=== PATIENT | female | born 1945 | race Caucasian/White ===

== ENCOUNTER → 2017-11-28 23:29 | Outpatient (CLI) | payer BC ==
[2015-12-24 14:18] VITALS: BMI 18.8
[~2017-11-28 23:29] MED LIST: ASPIRIN EC81 M1 PO; CELEXA10 MG PO; HYDROCODON-ACE1 EAC7 PO; MUCINEX DM ER1 EAC1 PO; MULTIPLE VITAMI1 TA1 PO; NORVASC5 MG PO; OMEPRAZOLE20 M1 PO; PEPCID20 MG PO; PROBIOTIC1 EAC1 PO
== END | disposition home or self-care (01) ==
LOC: D.MAMMO 11-15 14:15
DX: Z12.31 Encounter for screening mammogram for malignant neoplasm of breast (principal)

== ENCOUNTER → 2018-03-21 16:27 | Outpatient (CLI) | payer BC ==
[2015-12-24 14:18] VITALS: BMI 18.8
== END | disposition home or self-care (01) ==
LOC: D.MRI 16:27
DX: M54.5 Low back pain (principal)

== ENCOUNTER → 2018-05-02 08:01 | Outpatient (CLI) | payer BC ==
[2015-12-24 14:18] VITALS: BMI 18.8
[2018-05-02 09:22] LABS: ALBUMIN 3.9 g/dL (3.4-5.0); BILIRUBIN - DIRECT 0.16 mg/dL (0.00-0.30); BILIRUBIN - INDIRECT 0.45 mg/dL (0.00-1.00); BILIRUBIN - TOTAL 0.61 mg/dL (0.2-1.3); PROTEIN - SERUM 8.3 g/dL (6.4-8.2)
== END | disposition home or self-care (01) ==
LOC: D.MRI 08:00
PROVIDERS: Internal Medicine Gastroenterology
DX: R10.31 Right lower quadrant pain (principal); R93.89 Abnormal findings on diagnostic imaging of other specified body structures; R12 Heartburn

== ENCOUNTER → 2018-05-16 10:24 | Outpatient (CLI) | payer BC ==
[2015-12-24 14:18] VITALS: BMI 18.8
== END | disposition home or self-care (01) ==
LOC: D.RAD 10:24
PROVIDERS: ATTEND Internal Medicine Gastroenterology
DX: K57.90 Diverticulosis of intestine, part unspecified, without perforation or abscess without bleeding (principal); R10.9 Unspecified abdominal pain

== ENCOUNTER → 2020-08-13 09:10 | Outpatient (CLI) | payer BC ==
[2015-12-24 14:18] VITALS: BMI 18.8
--- NOTE | ~2020-08-13 | ST ---
PATIENT:PEPITO CELIS MEDICAL RECORD: [id number] SEX: F LOCATION:[facility] ORDER #: ADMISSION DATE: 08/13/20 AGE OF PATIENT: 75 REFERRING PHYSICIAN: INTERPRETING PHYSICIAN: DENIA RINCON MD DATE OF SERVICE: 08/13/2020 GATED: Gated is normal with normal wall motion, normal EF, calculated EF 72%. SPECT IMAGING: SPECT imaging was performed. 1. Short axis view: Short axis view shows a reversible defect extending from the mid inferior wall down to the inferior apex. This was confirmed in horizontal axis with a reversible defect from the mid inferior wall down to the inferior apex. 2. Vertical axis: Vertical axis shows good uptake along the lateral wall and septum. FINAL IMPRESSION: 1. Normal gated, normal wall motion, EF 72%. 2. Abnormal SPECT imaging with reversible defect seen along the mid inferior wall down to the inferior apex seen in 2 views. In this patient with ongoing anginal-type symptoms with known history of coronary artery disease, this scan is worrisome for progression of navajo disease. Consider diagnostic angiography if clinically indicated. TRANSINT:[id number] Voice Confirmation ID: [id number] DOCUMENT ID: [id number] DENIA RINCON MD CC: [id number] DICTATION DATE: 08/13/20 1703 PUMP SERVICER HELPER: 08/14/20 0604 DEP CLI 08/13/20 [id number] [place] [address]
== END | disposition home or self-care (01) ==
LOC: D.HCCARDIO 08-08 08:30
PROVIDERS: ATTEND Internal Medicine Interventional Cardiology
DX: R07.9 Chest pain, unspecified (principal)

== ENCOUNTER → 2020-08-14 09:28 | Outpatient (CLI) | payer BC ==
[2015-12-24 14:18] VITALS: BMI 18.8
== END | disposition home or self-care (01) ==
LOC: D.RT 09:00
PROVIDERS: ATTEND Family Medicine
DX: R06.00 Dyspnea, unspecified (principal)

== ENCOUNTER 2020-08-20 06:40 | Day surgery (SDC) | payer BC ==
[~2020-08-20] VITALS: Ht 160 cm; Wt 48.6 kg
--- NOTE | ~2020-08-20 | HEMODYNAMI ---
PATIENT:PEPITO CELIS MEDICAL RECORD: [id number] : 45 LOCATION:D.CAT ADMISSION DATE: 08/20/20 Generatedon:18:59 Patient name: PEPITO CELIS Patient #: [id number] SSN: [id number] : 1945 Date of study: 08/20/2020 Page: Of Hemodynamic Procedure Report Patient Data Patient Demographics Procedure consent was obtained First Name: PEPITO Gender: Female Last Name: LALITA : 1945 [facility] Initial: HERLINDA Age: 75 year(s) Patient #: [id number] Race: SSN: [id number] Additional ID: [id number] Contact details [address]: [address] [place] [address] State: [place] City: [place] Zip code: [address] Past Medical History Performed procedures and imaging results Date Procedure Procedure Results Comments 08/13/2020 Stress testing Positive->Intermediate with SPECT MPI risk Allergies Allergen Reaction Date Comments Reported Other allergy 08/20/2020 SULFA Admission Admission Data Admission Date: 08/20/2020 Admission Time: 6:40 Arrival Date: 08/20/2020 Arrival Time: 0:00 Admit Source: Other Insurance Payor: Private health insurance [facility] #: [id number] Height (in.): 63 BSA: 1.48 (m2) Height (cm.): 160.02 BMI: 18.99 (kg/m2) Weight (lbs.): 107.21 Weight (kg.): 48.63 Lab Results Lab Result Date: 08/20/2020 Lab Result Time: 0:00 Biochemistry Name Units Result Min Max BUN mg/dl 21 --(----)-* 7 18 Creatinine mg/dl 0.9 --(-*--)-- 0.6 1.3 eGFR ml/min 64.73494 *-(----)-- 90 120 NONAFRICAN CBC Name Units Result Min Max Hematocrit % 36.9 *-(----)-- 42 54 Hemoglobin g/dl 12.2 *-(----)-- 13.5 17.5 Procedure Procedure Types Cath Procedure Diagnostic Procedure [facility] w/Coronaries Sedation Charges Moderate Sedation 10-24 minutes Procedure Description Procedure Date Procedure Date: 08/20/2020 Procedure Start Time: 8:38 Procedure End Time: 8:57 Procedure Staff Name Function Tommie Trejo MD Performing Physician Rodriguez Wilson RN Nurse Ina Garcia RT Monitor Maria C Burton RT Scrub Procedure Data Cath Procedure Fluoroscopy Diagnostic fluoroscopy Total fluoroscopy Time: 1.9 time: 1.9 min min Diagnostic fluoroscopy Total fluoroscopy dose: 114 dose: 114 mGy mGy Contrast Material Contrast Material Type Amount (ml) Isovue 370 53 Entry Location Entry Primary Successful Side Size Upsize Upsize Entry Closure Sierra ccessful Closure Location (Fr) 1 (Fr) 2 (Fr) Remarks Device Remarks Radial Right 6 Fr Mechanical artery Short Compression Femoral Right 5 Fr Exoseal artery Estimated blood loss: 5 ml Diagnostic catheters Device Type Used For End Catheter Placement DIAGNOSTIC Anderson 110cm 5 Procedure Fr catheter ([id number]) MULTIPACK JL 4.0 5Fr Procedure catheter MULTIPACK 3DRC 5Fr Procedure catheter MULTIPACK Pigtail 5 Fr Procedure catheter Procedure Complications No complications Procedure Medications Medication Administration Route Dosage 0.9% NaCl I.V. 100 ml/hr Oxygen etCO2 Nasal cannula 2 l/min Heparin Flush Bag added to field 2 bags (1000units/500ml NS) Lidocaine 2% added to field 20 Zofran I.V. 4 mg Radial Cocktail added to field 1 syringe (Verapamil 2mg/Nitro 400mcg/Heparin 1500units) Versed I.V. 1 mg Fentanyl I.V. 50 mcg Versed I.V. 0.5 mg Hemodynamics Rest BSA: 1.48 (m2) HGB: 12.2 (g/dl) O2 Consumption: Estimated: 134.82 (ml/min) O2 Co nsumption indexed: Estimated:91.09 (ml/min/m) Heart Rate: 70 (bpm) Pressure Samples Time Site Value (mmHg) Purpose Heart Use Rate(bpm) 8:49 AO 101/56(81) Pullback 81 8:49 LV 104/-1,2 Pullback 81 Gradients Valve Time Site 1 Site 2 Mean SEP/DFP Peak To Heart Use (mmHg) (sec/min) Peak Rate (mmHg) (bpm) Aortic 8:49 LV AO 6 16 3 81 104/-1,2 101/56(81) Calculations Valve P-P Mean Valve Index Valve Source Name Gradient Area Flow (cm2) Aortic 3 6 3 6 Snapshots Pre Cath Intra NCS Post Cath Vital Signs Time Heart Resp SPO2 etCO2 NIBP (mmHg) Rhythm Pain Sedation Rate (ipm) (%) (mmHg) Status Level (bpm) 8:20:57 69 17 95 24 138/74(103) NSR 0 (11) 10(A) , No pain 8:25:13 69 17 97 24.7 119/67(92) NSR 0 (11) 10(A) , No pain 8:29:23 69 14 98 35.3 112/63(89) NSR 0 (11) 10(A) , No pain 8:33:31 72 15 98 34.5 108/60(77) NSR 0 (11) 10(A) , No pain 8:37:39 73 16 98 33.7 110/57(80) NSR 0 (11) 10(A) , No pain 8:41:44 76 6 97 27 122/68(98) NSR 0 (11) 10(A) , No pain 8:45:54 84 8 97 26.2 105/67(79) NSR 0 (11) 10(A) , No pain 8:49:58 83 11 97 31.5 119/66(86) NSR 0 (11) 10(A) , No pain 8:54:10 79 17 97 30 105/58(77) NSR 0 (11) 10(A) , No pain Medications Time Medication Route Dose Verified Delivered Reason Notes Ef fectiveness by by 8:19:12 0.9% NaCl I.V. 100 Tommie Frias used for ml/hr [facility] Nico Wilson exhibit technician 8:19:21 Oxygen etCO2 2 l/min Tommie Frias used for Nasal [facility] Nico Wilson exhibit technician cannula 8:19:28 Heparin Flush added 2 bags Tommie Reilly used for Bag to [facility] procedure (1000units/500ml field MD BROCK NS) 8:19:37 Lidocaine 2% added 20ml Tommie Reilly for local to vial [facility] anesthetic field MD BROCK 8:19:48 Zofran I.V. 4 mg Tommie Frias for nausea St Nico Wilson RN, MD 8:31:29 Radial Cocktail added 1 Tommie Reilly used for (Verapamil to syringe [facility] procedure 2mg/Nitro field MD BROCK 400mcg/Heparin 1500units) 8:35:43 Versed I.V. 1 [address] [facility] Nico Wilson RN sedation 8:35:51 Fentanyl I.V. 50 mcg Tommie Frias for St Nico Wilson RN sedation 8:41:59 Versed I.V. 0.5 mg Tom[address] for St Nico Wilson RN sedation Procedure Log Time Note 7:49:47 Informed consent obtained and on chart 7:50:19 Diagnostic Cath Status : Elective 7:50:31 Insurance Payor : Private health insurance 7:50:35 Arrival Date: 08/20/2020 12:00:00 AM 7:50:53 Admit Source: Other 7:50:56 Patient Height : 63 inches 7:51:00 Patient Weight : 107.21 lbs 7:51:38 Patient allergic to Other allergySULFA 7:51:43 ACC Patient presents with Stable Angina CCS Anginal Class 2--Slight limitation of ordinary activity. 7:51:47 Procedure Status Elective Heart Cath (OP). 7:51:49 Time tracking: Regular hours (M-F 7:00 - 5:00) 7:51:53 Plan of Care:Hemodynamics will remain stable., Cardiac rhythm will remain stable., Comfort level will be maintained., Respiratory function will remain adequate., Patient/ family verbilizes understanding of procedure., Procedure tolerated without complication., Recovers from procedure without complications.. 7:52:15 Stress Test: yes; abnormal INFERIOR 7:52:35 Alarms reviewed by R. N. 7:52:36 Sharps counted by scrub and verified by R.N. 8:01:41 Lab Result : BUN 21 mg/dl 8:01:41 Lab Result : eGFR NONAFRICAN 64.45145 ml/min 8:01:41 Lab Result : Hemoglobin 12.2 g/dl 8:01:41 Lab Result : Creatinine 0.9 mg/dl 8:01:41 Lab Result : Hematocrit 36.9 % 8:10:00 Rodriguez Wilson RN sent for patient. Start room use. 8:15:28 Patient received from Pre/Post Procedure Room to CCL 1 Alert and oriented. Tansferred to table in Supine position. 8:15:34 Warm blankets applied, and jack hugger turned on for patient comfort. 8:15:34 Correct patient and procedure confirmed by team. 8:15:35 ECG and BP/O2 sat monitors applied to patient. 8:15:36 Pre-procedure instructions explained to patient. 8:15:37 Pre-op teaching completed and patient verbalized understanding. 8:15:39 Family in waiting room. 8:15:40 Patient NPO since Midnight. 8:19:12 0.9% NaCl 100 ml/hr I.V. was administered by Rodriguez Wilson RN; used for procedure; Verbal order read back and verified. 8:19:21 Oxygen 2 l/min etCO2 Nasal cannula was administered by Rodriguez Wilson RN; used for procedure; Verbal order read back and verified. 8:19:28 Heparin Flush Bag (1000units/500ml NS) 2 bags added to field was administered by Tommie Trejo MD; used for procedure; Verbal order read back and verified. 8:19:37 Lidocaine 2% 20ml vial added to field was administered by Tommie Trejo MD; for local anesthetic; Verbal order read back and verified. 8:19:48 Zofran 4 mg I.V. was administered by Rodriguez Wilson RN; for nausea; Verbal order read back and verified. 8:19:51 Vital chart was started 8:20:22 Is the patient allergic to Iodine/contrast media? No. 8:20:28 Is patient on blood thinner?No 8:20:30 Patient diabetic? No. 8:20:33 ----Pre-sedation anethsthesia assessment.---- 8:20:39 Previous problem with sedation/anesthesia? No ? 8:20:40 Snore? Yes 8:20:42 Sleep apnea? No 8:20:43 Deviated septum? No 8:20:45 Opens mouth fully? Yes 8:20:47 Sticks out tongue? Yes 8:20:52 Airway obstruction? No ? 8:20:54 Dentures? No ? 8:21:00 Pre procedure: right dorsailis pedis pulse 2+ Normal; easily identifiable; not easily obliterated 8:21:03 Pre procedure: right radial pulse 2+ Normal; easily identifiable; not easily obliterated 8:21:07 Modified Trino's test Ulnar < 7 seconds 8:21:10 Patient pain scale 0/10 ?. 8:21:15 IV patent on arrival in left hand with 0.9% NaCl at [facility]. 8:21:18 Lab results completed and on chart. 8:23:46 Risk of Mortality: 0.3 8:23:52 Risk of blood transfusion: 1.8 8:23:56 Risk of WIN: 2.1 8:24:01 Right Radial & Right Groin area was prepped with chlora-prep and draped in sterile fashion 8:30:15 Baseline sample Acquired. 8:30:18 Full Disclosure recording started 8:30:21 Rhythm: sinus rhythm 8:30:40 H&P Date Dictated: 08/20/2020 New H&P dictated by physician.. 8:30:50 Use device set Radial Dx or PCI 8:30:51 ACIST Syringe (97010) opened to sterile field. 8:30:52 Medline Cath Pack ([id number]) opened to sterile field. 8:30:53 Bag Decanter (2002S) opened to sterile field. 8:30:53 ACIST Hand Control (84103) opened to sterile field. 8:30:54 ACIST Manifold (21034) opened to sterile field. 8:30:56 EMERALD Guide Wire (614-658) opened to sterile field. 8:30:58 SHEATH 6FR RAIN (5290919) opened to sterile field. 8:30:59 MBrace Wrist Support ([id number]) opened to sterile field. 8:31:29 Radial Cocktail (Verapamil 2mg/Nitro 400mcg/Heparin 1500units) 1 syringe added to field was administered by Tommie Trejo MD; used for procedure; Verbal order read back and verified. 8:35:03 --------ALL STOP TIME OUT------ 8:35:06 Final Timeout: patient, procedure, and site verified with staff and physician. All members of the team are in agreement. 8:35:08 Right Radial & Right Groin site verified by team. 8:35:10 Fire Safety Assessment: A--An alcohol-based skin anteseptic being used preoperatively., C--Open oxygen or nitrous oxide is being used., D--An ESU, laser, or fiber-optic light is being used. 8:35:12 Physical assessment completed. ASA score P 2 - A patient with mild systemic disease as per Tommie Trejo MD. 8:35:17 2) 60-89 Mildly reduced kidney function, and other findings (as for stage 1) point to kidney disease. 8:35:19 Maximum allowable contrast dose (3.7 X eGFR X 0.75)180 ml. 8:35:22 Sedation plan: IV Moderate Sedation Medication:Versed, Fentanyl 8:35:43 Versed 1 mg I.V. was administered by Rodriguez Wilson RN; for sedation; Verbal order read back and verified. 8:35:51 Fentanyl 50 mcg I.V. was administered by Rodriguez Wilson RN; for sedation; Verbal order read back and verified. 8:38:13 Procedure started. 8:38:21 Local anesthetic to right radial artery with Lidocaine 2% by Tommie Trejo MD.INITIAL ACCESS ONLY 8:40:43 A 6 Fr Short sheath was inserted into the Right Radial artery 8:41:27 A DIAGNOSTIC Anderson 110cm 5 Fr catheter ([id number]) was advanced over the wire and used for Procedure. 8:41:59 Versed 0.5 mg I.V. was administered by Rodriguez Wilson RN; for sedation; Verbal order read back and verified. 8:43:00 UNABLE TO GET GUIDE PAST RADIAL LOOP PROCEEDING TO GROIN. 8:43:07 Use device set Multipack Set 8:43:18 SHEATH 5FR [place] (ADG689) opened to sterile field. 8:43:19 DIAGNOSTIC Multipack 5Fr catheter set (BO0925) opened to sterile field. 8:43:26 Local anesthetic to right femoral artery with Lidocaine 2% by Tommie Trejo MD.ADDITIONAL ACCESS 8:44:13 A 5 Fr sheath was inserted into the Right Femoral artery 8:44:19 ZEPHYR REGULAR TR BAND (441544) opened to sterile field. 8:44:24 A MULTIPACK JL 4.0 5Fr catheter was advanced over the wire and used for Procedure. 8:45:16 LCA angiography performed. 8:45:18 Injector settings: Ml/sec: 3, Volume: 6, 8:46:23 Catheter removed. 8:46:28 A MULTIPACK 3DRC 5Fr catheter was advanced over the wire and used for Procedure. 8:47:47 Catheter exchanged over wire. 8:48:03 A MULTIPACK Pigtail 5 Fr catheter was advanced over the wire and used for Procedure. 8:48:43 LV gram done using CAPELLAN 8:49:43 LV hemodynamics recorded. 8:49:48 EF : 55 % 8:49:52 Catheter removed. 8:50:16 EXOSEAL 5Fr (EX500) opened to sterile field. 8:50:29 Sheath removed intact; hemostasis achieved with Mechanical Compression to the Right Radial artery. 8:50:38 Sheath removed intact; hemostasis achieved with Exoseal to the Right Femoral artery. 8:50:58 Fluoroscopy time 01.90 minutes. 8:51:02 Fluoroscopy dose: 114 mGy 8:51:02 Flurop Dose total: 114 8:51:08 Dose Area Product 5685 mGy/cm. 8:51:10 Procedure ended.(Physican Out) 8:51:35 Contrast amount:Isovue 370 53ml. 8:51:42 Maximum allowable dose exceeded? No. 8:51:42 Sharps counted by scrub and verified by R.N. 8:51:46 Cidra band inflated with 11cc of air. 8:51:51 Post-op/insertion site Right Femoral artery dressed using a 4 x 4 and Tegaderm. 8:51:56 Post right femoral artery:stable, soft, clean and dry 8:51:59 Post Procedure Pulses reassessed and unchanged 8:52:01 Post procedure: right dorsailis pedis pulse 1+ Palpable, but thready & weak; easily obliterated. 8:52:04 Post-procedure physical assessment completed. ASA score P 2 - A patient with mild systemic disease as per Tommie Trejo MD. 8:52:07 Post procedure rhythm: unchanged. 8:52:09 Estimated blood loss: 5 ml 8:52:23 Post procedure instruction explained to patient.Patient verbalizes understanding. 8:52:28 Patient needs reinforcement of post procedure teaching. 8:52:40 Procedure type changed to Cath procedure, Diagnostic procedure, LHC, [facility] w/Coronaries, Sedation Charges, Moderate Sedation 10-24 minutes 8:54:45 Procedure and supply charges have been captured, reviewed, submitted and are correct. 8:54:49 Procedure Complication : No complications 8:57:14 Vital chart was stopped 8:57:16 LHC Findings: mild to moderate CAD (<70%) 8:57:17 Operative report dictated upon procedure completion. 8:57:18 See physician's report for complete and final results. 8:57:21 Report given to Pre/Post Procedure Room. 8:57:25 Patient transfered to Pre/Post Procedure Room with Stretcher. 8:57:27 Procedure ended. 8:57:27 Full Disclosure recording stopped 8:57:31 End room use (Document Last) 8:58:06 End room use (Document Last) 8:58:57 End room use (Document Last) Device Usage Item Name Manufacture Quantity Catalog Hospital Part Current Minima l Lot# / Number Charge Number Stock Stock Serial# Code ACIST Acist 1 51086 584958 141879 335522 20 Syringe Medical (74973) Systems Inc Medline Medline 1 [id number] 997405 21072 901975 5 Cath Pack ([id number]) Bag Microtek 1 2001S 706596 07394 474071 5 Decanter Medical Inc. () ACIST Hand Acist 1 24771 601817 226823 974913 5 Control Medical (61326) Systems Inc ACIST Acist 1 26904 612277 545894 486446 5 Manifold Medical (81124) Systems Inc EMERALD Cardinal 1 502-455 167381 427113 864540 5 Guide Wire Health (502-455) SHEATH 6FR Cardinal 1 [id number] 972864 8738378 797629 5 [facility] (2751919) MBrace Advanced 1 140-0250-00 948527 80645 922789 5 Wrist Vascular Support Dynamics ([id number]) DIAGNOSTIC Terumo 1 40-5013 939710 257677 848371 5 Anderson 110cm 5 Fr catheter (383538) SHEATH 5FR Terumo 1 WQR745 272345 050847 719854 5 [place] (HQX655) DIAGNOSTIC Cardinal 1 BQ0674 519698 84288 985804 30 Multipack Health 5Fr catheter set (GG3757) ZEPHYR Cardinal 1 088203 544870 5134178 355917 5 REGULAR TR Health BAND (272317) MULTIPACK Cardinal 1 027093 5 JL 4.0 5Fr Health catheter MULTIPACK Cardinal 1 099498 5 3DRC 5Fr Health catheter MULTIPACK Cardinal 1 598333 5 Pigtail 5 Health Fr catheter EXOSEAL 5Fr Cardinal 1 EX500 378420 635040 097795 10 (EX500) Health Signature Audit Munson Stage Time Signature Unsigned Intra-Procedure 08/20/2020 Ina Garcia 8:58:06 AM RT(R) Intra-Procedure 08/20/2020 Rodriguez Wilson RN 8:58:57 AM Intra-Procedure 08/20/2020 Tommie Klein 8:59:33 AM Nico BROCK [place] [address] [id number] [place] [id number]
[2020-08-20] MEDS ORDERED: VIBRAMYCIN 100100 MG PO (06:56)
[2020-08-20] MEDS ORDERED: COMBIGAN OPHT DR5 ML EACH EYE (06:57)
[2020-08-20] MEDS ORDERED: COZAAR50 MG PO (06:58)
[2020-08-20] MEDS ORDERED: HYDROCHLOROTH12.5 M1 PO (06:59)
[2020-08-20 07:18] VITALS: BP 134/71; Ht 160 cm; Wt 48.6 kg
[2020-08-20 07:37] LABS: BASOPHILS 0.3 % (0-2); EOSINOPHILS 2.5 % (0-7); HEMATOCRIT 36.9 % (36.0-48.0); HEMOGLOBIN 12.2 g/dL (12-16); LYMPHOCYTES 20.8 % (15-50); MCH 30.4 pg (26.0-34.0); MCV 92.1 fL (80.0-100.0); MONOCYTES 8.2 % (2-11); NEUTROPHILS 68.2 % (40-80); RBC 4.01 10x6/uL (4.00-5.40); RDW 13.3 % (11.5-14.5)
[2020-08-20 07:48] LABS: ANION GAP 11.7 mmol/L (8-16); CALCIUM 9.2 mg/dL (8.5-10.1); CARBON DIOXIDE 26.5 mmol/L (21.0-32.0); CHOL - HDL RATIO 2.3 ratio (2.3-4.1); CREATININE - SERUM 0.9 mg/dL (0.6-1.3); LDL-HDL RATIO 1.1 ratio (1.5-3.5); POTASSIUM - SERUM 4.2 mmol/L (3.5-5.1)
[2020-08-20 07:51] LABS: PLATELET COUNT 482 10x3/uL (130-400)
--- NOTE | 2020-08-20 09:09 | NUR ---
PT REC'D TO GOVERNMENT CONTRACTS MANAGER HOLDING ROOM 12. AWAKE AND ALERT, FOLLOWS COMMANDS. MONITORING EQUIPMENT ATTACHED. R WRIST WITH Z BAND, SITE CDI WITH NO S/S OF HEMATOMA. R GROIN WITH EXOSEAL CDI, NO S/S OF HEMATOMA. PERIPHERAL PULSES PRESENT. FRIEND AT BEDSIDE. CALL LIGHT WITHIN PT REACH.
--- NOTE | 2020-08-20 09:24 | NUR ---
R WRIST Z BAND SITE CDI. R GROIN SITE CDI, NO S/S OF HEMATOMA. PERIPHERAL PULSES PRESENT. PT TOLERATING ICE CHIPS, NO COMPLAINTS OF NAUSEA. FRIEND AT BEDSIDE, CALL LIGHT WITHIN PT REACH.
--- NOTE | 2020-08-20 09:39 | NUR ---
PT AOX4. R WRIST WITH Z BAND SITE CDI. R GROIN EXOSEAL SITE CDI, NO S/S OF HEMATOMA. PERIPHERAL PULSES PRESENT. R LEG STRAIGHT, HEAD FLAT ON PILLOW. FRIEND AT BEDSIDE, CALL LIGHT WITHIN PT REACH.
--- NOTE | 2020-08-20 09:54 | NUR ---
PT RESTING QUIETLY WITH NO COMPLAINTS AT THIS TIME. R WRIST Z BAND SITE CDI. R GROIN EXOSEAL CDI WITH NO S/S OF HEMATOMA. PERIPHERAL PULSES STRONG/REGULAR. FRIEND AT BEDSIDE, CALL LIGHT WITHIN PT REACH.
--- NOTE | 2020-08-20 10:09 | NUR ---
3ML REMOVED FROM Z BAND, PT INSTRUCTED OF S/S TO REPORT. R GROIN EXOSEAL CDI, NO S/S OF HEMATOMA. PERIPHERAL PULSES PRESENT. HOB ELEVATED TO 30 DEGREES. SANDWICH TRAY PROVIDED. CALL LIGHT WITHIN PT REACH.
--- NOTE | 2020-08-20 10:19 | NUR ---
7MLS AIR TOTAL REMOVED FROM Z BAND, NO BLEEDING NOTED AT THIS TIME.
--- NOTE | 2020-08-20 10:24 | NUR ---
ALL AIR REMOVED FROM Z BAND, NO BLEEDING NOTED AT THIS TIME. DRESSING APPLIED. R GROIN EXOSEAL CDI, NO S/S OF HEMATOMA. PERIPHERAL PUSLES PRESENT. ATE 100% OF SANDWICH TRAY WITH NO C/O NAUSEA. CALL LIGHT WITHIN PT REACH.
--- NOTE | 2020-08-20 10:39 | NUR ---
R WRIST WITH DRSG CDI, NO S/S OF BLEEDING OR HEMATOMA. R GROIN WITH EXOSEAL CDI, NO S/S OF HEMATOMA. PERIPHERAL PULSES PRESENT. CALL LIGHT WITHIN PT REACH.
--- NOTE | 2020-08-20 10:50 | NUR ---
PIV D/C'D WITH CATH TIP INTACT. DISCHARGE INSTRUCTIONS PROVIDED, PT AND PT FRIEND VERBALIZE UNDERSTANDING. PT ALLOWED TO GET DRESSED INDEPENDENTLY. PT INDEPENDENTLY USES RESTROOM.
--- NOTE | 2020-08-20 11:00 | NUR ---
DISCHARGED VIA WHEELCHAIR TO PRIVATE VEHICLE. BELONGINGS AND PAPERWORK WITH PT.
--- NOTE | 2020-08-22 09:24 | OP ---
PATIENT NAME: PEPITO CELIS MEDICAL RECORD: [id number] :45 LOCATION:D.CAT ADMISSION DATE: SURGEON: DENIA RINCON MD DATE OF OPERATION: 08/20/2020 PROCEDURE: Left heart catheterization, selective coronary angiography, right femoral artery approach. Radial unobtainable due to radial loop. CATHETERS: 1. A 5-Icelandic sheath. 2. A 5/4 right Hood. 3. A 5/4 pig. The procedure was well tolerated. The patient returned to the padilla, sheath removed. Adequate hemostasis was obtained as well as ExoSeal device. FINDINGS: Left ventriculography in 30-degree CAPELLAN view. Normal wall motion, normal systolic function. CORONARY ANATOMY: LEFT MAIN: Left main is free of disease. LAD: Free of disease in the diagonal system. CIRCUMFLEX: Marginal system. RIGHT CORONARY ARTERY: Dominant artery of PDA, free of disease. IMPRESSION: Normal left ventricular systolic function. Normal coronary anatomy. TRANSINT:[id number] Voice Confirmation ID: [id number] DOCUMENT ID: [id number] DENIA RINCON MD at 0924 CC: [id number] DICTATION DATE: 08/20/20 0858 ELECTRICAL TROUBLESHOOTER: 08/20/20 1013 [facility] 08/20/20 [address] [place] [address]
--- NOTE | 2020-08-22 09:24 | HP ---
PATIENT: PEPITO CELIS MEDICAL RECORD: [id number] ACCOUNT: [id number] LOCATION:ÁNGELA : 45 ADMISSION DATE: 08/20/20 PCP: SARAH PEGUERO MD HISTORY AND PHYSICAL EXAMINATION HISTORY OF PRESENT ILLNESS: A 75-year-old female with no known history of coronary artery disease. She has a history of hypertension, family history of coronary artery disease. She was recently seen in the office with anginal symptomatology, subsequently underwent Cardiolite stress testing showed a reversible defect along the inferior wall, continued to have angina. She was brought to the lab systems analyst for further evaluation. PAST MEDICAL HISTORY: Includes: 1. History of hypertension. 2. Osteoarthritis. 3. Reactive airway disease. SOCIAL HISTORY: Retired, nonsmoker. Does try to exercise. PHYSICAL EXAMINATION: GENERAL: Pleasant. No acute distress, appears stated age. HEENT: Normocephalic, atraumatic. NECK: No JVD, no carotid bruit. CARDIOVASCULAR: Regular. LUNGS: Pete clear. ABDOMEN: Soft, nontender. EXTREMITIES: Pulses 2+. No edema. Noninvasive study is abnormal as described above. PLAN: For angiography and intervention based on the above. TRANSINT:[id number] Voice Confirmation ID: [id number] DOCUMENT ID: [id number] DENIA RINCON MD at 0924 CC: [id number] DICTATION DATE: 08/20/20 0829 FUR MACHINE OPERATOR: 08/20/20 0905 [facility] 08/20/[address] [address]
== END 2020-08-20 11:01 | disposition home or self-care (01) ==
LOC: D.CATH 06:40
PROVIDERS: ATTEND Internal Medicine Interventional Cardiology
DX: R07.9 Chest pain, unspecified (principal); R94.39 Abnormal result of other cardiovascular function study; I10 Essential (primary) hypertension; I20.9 Angina pectoris, unspecified; J45.909 Unspecified asthma, uncomplicated; M19.90 Unspecified osteoarthritis, unspecified site